=== PATIENT | male | born 1940 | race Two or more races ===

== ENCOUNTER → 2025-01-31 | Day surgery (SDC) | payer MEDICAID ==
[2025-01-28 14:27] LABS: Basophils # (auto) 0 10 ^3/uL (0-0.2); Eosinophils # (auto) 0.1 10 ^3/uL (0-0.8); Hemoglobin 10.2 g/dL (13.5-17.5); Monocytes # (auto) 0.7 10 ^3/uL (0-1.3); Neutrophils # (auto) 4.6 10 ^3/uL (1.6-8.6); White Blood Cell 6.5 10^3/uL (4.4-10.8)
[2025-01-28 14:29] LABS: Basophils % (auto) 0.1 % (0.0-2.0); Eosinophils % (auto) 0.9 % (0.0-7.0); Hematocrit 32.4 % (41.0-53.0); Lymphocytes # (auto) 1.1 10 ^3/uL (0.4-5.4); Lymphocytes % (auto) 17.3 % (10.0-50.0); Mean Corpuscular Hemoglobin 22.4 pg (28.0-32.0); Mean Corpuscular Hgb Conc. 31.6 g/dL (32.0-36.0); Mean Corpuscular Volume 71.1 fL (80.0-100.0); Monocytes % (auto) 10.6 % (0.0-12.0); Neutrophils % (auto) 71.1 % (37.0-80.0); Nucleated Red Blood Cells % 0.1 %; Platelet Count (auto) 141 10^3/uL (140-450); Red Blood Cells 4.56 10^6/uL (4.5-5.90); Red Cell Distribution Width 16.4 % (11.8-14.3)
[2025-01-28 14:44] LABS: INR 1.11 (0.9-1.15); Partial Thromboplastin Time 27.3 SEC (24.5-34.5); Prothrombin Time 11.6 sec (9.3-11.8)
[2025-01-28 15:01] LABS: Alanine Aminotransferase 16 U/L (7-40); Albumin 4.6 g/dL (3.2-4.8); Alkaline Phosphatase 86 U/L (46-116); Anion Gap 13 (5-15); Aspartate Aminotransferase 20 U/L (13-40); BUN/Creatinine Ratio 17.1 (10.0-20.0); Blood Urea Nitrogen 20 mg/dL (9-23); Calcium 10.1 mg/dL (8.7-10.4); Carbon Dioxide 25 mmol/L (20-31); Chloride 99 mmol/L (98-107); Potassium 4.3 mmol/L (3.5-5.1); Sodium 137 mmol/L (136-145); Total Protein 7.7 g/dL (5.7-8.2)
[2025-01-28 15:02] LABS: Bilirubin, Total 0.4 mg/dL (0.2-1.0); Glucose 160 mg/dL (74-106)
[~2025-01-31] VITALS: Ht 170.2 cm; Wt 76.7 kg
[~2025-01-31] MED LIST: AMLO1TAB23 PO; APIX2.5T PO; ATOR20TA PO; DexAMETHasone SOD PHOS 10MG/1ML VIAL INJ ONE; FINA5TAB4 PO; FLUMAZENIL 0.1 MG/ML INJ 10ML MDV IV PRN; FOLI-119 PO; GABA-1308 PO; GLYCOPYRROLATE 0.2 MG/ML 1ML VIAL ONE; HYDR-4072 PO; HYDROmorphone HCL 2 MG/ML VL/or syr IV PRN; KETOROLAC TROMETH 30 MG/ML 1ML VIAL ONE; LIDOCAINE 1% INJ PF 5ML AMP ONE; METF-371 PO; NALOXONE HCL 0.4 MG/ML VIAL IV PRN; ONDANSETRON HCL 4 MG/2 ML VIAL IV PRN; ONDANSETRON HCL 4 MG/2 ML VIAL ONE; PROPOFOL 10 MG/ML 20 ML IV ONE; TAMS0.4C39 PO; VANCOMYCIN HCL 1000 MG VL ONE; ceFAZolin 1GM VL ONE; ePHEDrine SULFATE 50 MG/ML AMP IV PRN; fentaNYL CITRATE 100 MCG/2 ML VL IV PRN; hydrALAZINE HCL 20 MG/ML VL IV PRN
[2025-01-31 12:41] LABS: Urine Bacteria FEW /hpf (None Seen); Urine Blood Negative /uL (Negative); Urine Clarity Turbid (Clear); Urine Color Light-Yellow (Yellow); Urine Mucus FEW (None Seen); Urine Protein, UAD Negative (Negative); Urine Specific Gravity 1.012 (1.001-1.035); Urine Squamous Epithelial Cell FEW /hpf (<5); Urine Urobilinogen Normal (Negative); Urine WBC 50 /HPF (0-3); Urine pH 6.5 (5.0-9.0)
[2025-01-31] MEDS: BUPIVACAINE 0.5% P/F INJ 10 ML VIAL ONE (12:48)
[2025-01-31 13:13] VITALS: PULSE 76; RESP 12; TEMP 97.8; O2SAT 100
--- NOTE | 2025-01-31 13:14 | DVHOP2 ---
Operative Report - 2 Report Details Date: 01/31/25 Preop Diagnosis: 1. 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 Right foot gangrene 4th toe 3. Right foot gangrene 3rd toe 4. Right foot gangrene 1st toe 5. Right foot cellulitis Postop Diagnosis: Same as preop Surgeon: Gurmeet Morales MD Anesthesiologist: See anesthesia Anesthesia: Mac Consent: The patient was informed of the risks and benefits of the procedure. These include but are not limited to complications of anesthesia, postoperative infection, incomplete relief of symptoms, recurrence of symptoms, damage to blood vessels, nerves and tendons, deep venous thrombosis, pulmonary embolism and possible need for repeat surgery in the future. Complications: None Estimated Blood Loss: Minimal Fluids: See anesthesia Findings: Consistent with diagnosis Indications for Surgery: Worsening right foot gangrene Name of Procedure Performed 1. Right foot 5th toe amputation at IPJ (69577) 2. Right foot 4th toe amputation at MPJ ([id number]) 3. Right foot 3rd toe amputation at IPJ ([id number]) 4. Right foot 1st toe amputation at IPJ ([id number]) Procedure Details Procedure Details: PRE-PROCEDURE INFORMATION: In the pre-op holding area, the extremity to be operated on was clearly marked and the patient verified correct laterality of the marking. The patient was transferred to the OR table and placed in a supine position. A timeout was performed in which identification of the correct patient, procedure, location, and materials was done. The right foot and leg were prepped and draped in normal sterile fashion. DESCRIPTION OF PROCEDURE: Attention was directed to the right 5th digit where a fish mouth type incision was made about the DIPJ of the digit. This incision enveloped the ulceration that was on the distal tip of the digit and allowed adequate coverage of the remaining bone for flap closure. This incision was deepened to the level of the bone and utilizing sharp dissection, the distal aspect of the digit was removed at the distal interphalangeal joint level. It was clear after resection of the bone that the remaining bone left intact was viable and appeared to have no signs of osteomyelitis or other infection. Utilizing a rongeur and other instrumentation, all devitalized soft tissue was removed from the area. The infected bone that had been amputated was sent for culture and pathology, and a proximal margin was sent as well. The wound was irrigated copiously with normal saline using cysto tubing. Attention was directed to the right 4th digit where a fish mouth type incision was made about the PIPJ of the digit. This incision enveloped the ulceration that was on the distal tip of the digit and allowed adequate coverage of the remaining bone for flap closure. This incision was deepened to the level of the bone and utilizing sharp dissection, the distal aspect of the digit was removed at the distal interphalangeal joint level. It was clear after resection of the bone that the remaining bone left intact was viable and appeared to have no signs of osteomyelitis or other infection. Utilizing a rongeur and other instrumentation, all devitalized soft tissue was removed from the area. The infected bone that had been amputated was sent for culture and pathology, and a proximal margin was sent as well. The wound was irrigated copiously with normal saline using cysto tubing. Attention was directed to the right 3rd digit where a fish mouth type incision was made about the DIPJ of the digit. This incision enveloped the ulceration that was on the distal tip of the digit and allowed adequate coverage of the remaining bone for flap closure. This incision was deepened to the level of the bone and utilizing sharp dissection, the distal aspect of the digit was removed at the distal interphalangeal joint level. It was clear after resection of the bone that the remaining bone left intact was viable and appeared to have no signs of osteomyelitis or other infection. Utilizing a rongeur and other instrumentation, all devitalized soft tissue was removed from the area. The infected bone that had been amputated was sent for culture and pathology, and a proximal margin was sent as well. The wound was irrigated copiously with normal saline using cysto tubing. Attention was directed to the 1st digit where a fish mouth type incision was made about the DIPJ of the digit. This incision enveloped the ulceration that was on the distal tip of the digit and allowed adequate coverage of the remaining bone for flap closure. This incision was deepened to the level of the bone and utilizing sharp dissection, the distal aspect of the digit was removed at the distal interphalangeal joint level. It was clear after resection of the bone that the remaining bone left intact was viable and appeared to have no signs of osteomyelitis or other infection. Utilizing a rongeur and other instrumentation, all devitalized soft tissue was removed from the area. The infected bone that had been amputated was sent for culture and pathology, and a proximal margin was sent as well. The wound was irrigated copiously with normal saline using cysto tubing. All surgical wounds were irrigated copiously with saline and closed with 2-0 Nylon. A dry sterile dressing was placed on the surgical extremity. The patient was placed in a post op. POSTOPERATIVE INFORMATION: The patient tolerated the above noted procedure and anesthesia well and was transferred to the PACU with vital signs stable, and vascular status intact with capillary refill intact to all digits. Postoperative instructions reviewed in detail with the patient with written instructions provided. Patient will return to clinic in approximately 10-14 days for first postoperative visit. Patient has the number of the clinic and was instructed to call prior to that time should any problems, questions, or concerns arise. Condition Good Disposition Still a Patient GURMEET MORALES DPM Jan 31, 2025 13:14
[2025-01-31 13:50] VITALS: BP 148/70; PULSE 79; RESP 15; O2SAT 98
== END | disposition home or self-care (01) ==
LOC: SUR 11:34
PROVIDERS: ATTEND Podiatrist
DX: E11.52 Type 2 diabetes mellitus with diabetic peripheral angiopathy with gangrene (principal); I96 Gangrene, not elsewhere classified; L03.115 Cellulitis of right lower limb; E11.51 Type 2 diabetes mellitus with diabetic peripheral angiopathy without gangrene; I10 Essential (primary) hypertension; Z95.5 Presence of coronary angioplasty implant and graft; E66.3 Overweight; Z79.899 Other long term (current) drug therapy; Z98.890 Other specified postprocedural states; Z79.84 Long term (current) use of oral hypoglycemic drugs; Z79.82 Long term (current) use of aspirin
CPT/HCPCS: 28820; 28825; 36415; 80053; 81001; 82962; 85025; 85610; 85730; J0690; J1100; J1885; J2405; J2704; J3370; J3490